=== PATIENT | female | born 1990 ===

== ENCOUNTER 2018-06-02 21:33 | Inpatient (IN) | payer OTHER ==
[2018-06-02] MEDS ORDERED: Sodium Chloride 0.9% 1,000 ML IV STA (22:19)
--- NOTE | 2018-06-02 22:24 | ED PDOC ---
HPI: Abdomen Time Seen by Provider: 06/02/18 22:03 Chief Complaint (Nursing): Chest Pain Chief Complaint (Provider): Abdominal Pain History Per: Patient History/Exam Limitations: no limitations Onset/Duration Of Symptoms: Days (x2) Current Symptoms Are (Timing): Still Present Associated Symptoms: Nausea, Chest Pain Additional Complaint(s): 27 y/o female presents to the ED complaining of abdominal pain for 2 days. Pain is associated with nausea, but no vomiting. Otherwise patient denies any diarrhea, vaginal bleeding, fever, chills, dysuria, urinary frequency, or incontinence. Also complains of left-sided chest pain, described as intermitt ent. No associated cough, palpitations, dizziness, or SOB. PMD: None Past Medical History Reviewed: Historical Data, Nursing Documentation, Vital Signs Vital Signs: Last Vital Signs Temp 98.4 F 06/02/18 21:59 Pulse 69 06/02/18 21:59 Resp 18 06/02/18 21:59 BP 105/62 06/02/18 21:59 Pulse Ox 99 06/02/18 21:59 - Medical History PMH: HTN - Family History Family History: States: No Known Family Hx - Home Medications Home Medications: Ambulatory Orders Medication Instructions Recorded RX: No Known Home Med 06/03/18 - Allergies Allergies/Adverse Reactions: Allergies Allergy/AdvReac Type Severity Reaction Status Date / Time No Known Allergies Allergy Verified 06/02/18 22:01 Review of Systems ROS Statement: Except As Marked, All Systems Reviewed And Found Negative Constitutional: Negative for: Fever, Chills Cardiovascular: Positive for: Chest Pain Respiratory: Negative for: Cough, Shortness of Breath Gastrointestinal: Positive for: Nausea, Abdominal Pain. Negative for: Vomiting, Diarrhea Genitourinary Female: Negative for: Dysuria, Frequency, Incontinence, Hematuria, Vaginal Bleeding Neurological: Negative for: Weakness, Dizziness Physical Exam - Reviewed Nursing Documentation Reviewed: Yes Vital Signs Reviewed: Yes - Physical Exam Appears: Positive for: Non-toxic, No Acute Distress Head Exam: Positive for: ATRAUMATIC, NORMOCEPHALIC Skin: Positive for: Normal Color, Warm, Dry Eye Exam: Positive for: EOMI, Normal appearance, PERRL Neck: Positive for: Normal, Painless ROM Cardiovascular/Chest: Positive for: Regular Rate, Rhythm, Chest Non Tender. Negative for: Murmur Respiratory: Positive for: Normal Breath Sounds. Negative for: Accessory Muscle Use, Respiratory Distress Gastrointestinal/Abdominal: Positive for: Soft, Tenderness (to right lower quadrant). Negative for: Guarding, Rebound Back: Negative for: L CVA Tenderness, R CVA Tenderness Extremity: Positive for: Normal ROM. Negative for: Calf Tenderness, Swelling Neurologic/Psych: Positive for: Alert, Oriented (x3). Negative for: Motor/Sensory Deficits - Laboratory Results Result Diagrams: 06/03/18 05:45 06/03/18 05:45 - ECG O2 Sat by Pulse Oximetry: 99 (RA) Pulse Ox Interpretation: Normal Medical Decision Making Medical Decision Making: Time: 22:19 Initial Impression: RLQ pain, nausea, chest pain Initial Plan: * CMP * Lipase * CBC * Urine dipstick * Urine preg * Chest x-ray * CT abd/pelvis * IV fluids * Zofran 4 mg IVP Scribe Attestation: Documented by Hiral Fisher, acting as a scribe for Dr. Frantz Wells MD. Provider Scribe Attestation: All medical record entries made by the Scribe were at my direction and personally dictated by me. I have reviewed the chart and agree that the record accurately reflects my personal performance of the history, physical exam, medical decision making, and the department course for this patient. I have also personally directed, reviewed, and agree with the discharge instructions and disposition. Disposition - Clinical Impression Clinical Impression: Abdominal pain - Patient ED Disposition Is Patient to be Admitted: Transfer of Care - Disposition Disposition: Transfer of Care Disposition Time: 00:00 Condition: FAIR Patient Signed Over To: Eric De Los Santos
[2018-06-02 22:42] LABS: BASO % 0.3 % (0.0-2.0); EOS # 0.1 K/uL (0.0-0.7); EOS % 0.4 % (0.0-4.0); HEMOGLOBIN 13.2 g/dL (12.0-16.0); LYMPH # 1.5 K/uL (1.0-4.3); LYMPH % 10.1 % (20.0-40.0); MEAN CELL VOLUME 94.5 fl (81.0-99.0); MEAN CORPUSCULAR HEMOGLOBIN 31.7 pg (27.0-31.0); MEAN CORPUSCULAR HGB CONC 33.6 g/dL (33.0-37.0); MEAN PLATELET VOLUME 7.7 fl (7.2-11.7); MONO # 0.8 K/uL (0.0-0.8); MONO % 5.4 % (0.0-10.0); NEUT # 12.6 K/uL (1.8-7.0); NEUT % 83.8 % (50.0-75.0); RBC 4.17 Mil/uL (3.80-5.20); RED CELL DISTRIBUTION WIDTH 13.9 % (11.5-14.5); WHITE BLOOD COUNT 15.1 K/uL (4.8-10.8)
[2018-06-02 22:53] LABS: ALB/GLOB RATIO 1.2 (1.0-2.1); ALBUMIN 4.8 g/dL (3.5-5.0); ALT/SGPT 56 U/L (9-52); AST/SGOT 66 U/L (14-36); BLOOD UREA NITROGEN 15 mg/dl (7-17); CALCIUM 9.1 mg/dL (8.4-10.2); GFR NON-AFRICAN AMERICAN > 60; LIPASE 113 U/L (23-300)
[2018-06-02] MEDS ORDERED: Sodium Chloride 0.9% 50 ML IV ONE (22:58)
[2018-06-02] MEDS ORDERED: Iohexol 300 100 ML IJ ONE (22:58)
[2018-06-03] MEDS ORDERED: Piperacillin/Tazobact 3.375 GM in Sodium Chloride 0.9% 100 ML IVPB STA (01:33)
[2018-06-03] MEDS ORDERED: Sodium Chloride 0.9% 1,000 ML IV STA (01:34)
[2018-06-03] MEDS ORDERED: Piperacillin/Tazobact 3.375 gm Inj IVPB ONE (01:59)
[2018-06-03 02:20] LABS: VENOUS BLOOD GAS BASE EXCESS -1.2 mmol/L (0.0-2.0); VENOUS BLOOD GAS PCO2 39 mmHg (40-60); VENOUS BLOOD GAS PO2 42 mm/Hg (30-55); VENOUS BLOOD PH 7.39 (7.32-7.43)
[2018-06-03] MEDS ORDERED: Morphine 4 MG/ML VIAL IVP PRN (03:28)
--- NOTE | 2018-06-03 04:28 | CP.PCM.HP ---
<Gavin Parnell - Last Filed: 06/03/18 07:14> History of Present Illness - History of Present Illness History of Present Illness: General Surgery H&P CC: abdominal pain HPI: 27F presented to the ED with constant RLQ pain that began yesterday evening and got worse over time. She has never felt this pain before. Pain is associated with nausea, but no emesis. Last BM was yesteday and was normal. Denies fever, chills, SOB, chest pain, diarrhea, vaginal bleeding, symptoms. PMH: HTN (does not take meds) PSH: Denies FH: noncontributory SH: No tobacco, EtOH or Drug use. All: NKDA Meds: Denies PMD: None Present on Admission - Present on Admission Any Indicators Present on Admission: No Review of Systems - Review of Systems All systems: reviewed and no additional remarkable complaints except (as per HPI) Past Patient History - Past Social History Smoking Status: Never Smoked - CARDIAC Hx Hypertension: Yes - PSYCHIATRIC Hx Substance Use: No - SURGICAL HISTORY Hx Surgeries: No - ANESTHESIA Hx Anesthesia: No Meds Allergies/Adverse Reactions: Allergies Allergy/AdvReac Type Severity Reaction Status Date / Time No Known Allergies Allergy Verified 06/02/18 22:01 Physical Exam - Constitutional Appears: Non-toxic, No Acute Distress - Head Exam Head Exam: ATRAUMATIC, NORMOCEPHALIC - Eye Exam Eye Exam: EOMI. absent: Scleral icterus - ENT Exam ENT Exam: Mucous Membranes Dry Additional comments: trachea midline - Neck Exam Neck exam: Positive for: Full Rom. Negative for: Tenderness - Respiratory Exam Respiratory Exam: NORMAL BREATHING PATTERN. absent: Respiratory Distress - Cardiovascular Exam Cardiovascular Exam: RRR, +S1, +S2 - GI/Abdominal Exam GI & Abdominal Exam: Soft, Tenderness (in RLQ >suprapubic). absent: Distended, Firm, Guarding, Hernia, Rebound, Rigid - Rectal Exam Rectal Exam: Deferred - Extremities Exam Extremities exam: Positive for: pedal pulses present. Negative for: calf tenderness, pedal edema - Back Exam Back exam: absent: CVA tenderness (L), CVA tenderness (R) - Neurological Exam Neurological exam: Alert, Oriented x3 - Skin Skin Exam: Dry, Warm Results - Vital Signs Recent Vital Signs: Last Vital Signs Temp 97.7 F 06/03/18 04:08 Pulse 73 06/03/18 04:08 Resp 18 06/03/18 04:08 BP 114/61 06/03/18 04:08 Pulse Ox 99 06/03/18 04:08 - Labs Result Diagrams: 06/03/18 05:45 06/03/18 05:45 Labs: Laboratory Results - last 24 hr 06/02/18 06/02/18 06/03/18 22:35 22:35 02:11 WBC 15.1 H RBC 4.17 Hgb 13.2 Hct 39.4 MCV 94.5 MCH 31.7 H MCHC 33.6 RDW 13.9 Plt Count 248 MPV 7.7 Neut % (Auto) 83.8 H Lymph % (Auto) 10.1 L [place] % (Auto) 5.4 Eos % (Auto) 0.4 Baso % (Auto) 0.3 Neut # (Auto) 12.6 H Lymph # (Auto) 1.5 [place] # (Auto) 0.8 Eos # (Auto) 0.1 Baso # (Auto) 0.0 pO2 42 VBG pH 7.39 VBG pCO2 39 L VBG HCO3 23.4 VBG Total CO2 24.8 VBG O2 Sat (Calc) 81.7 H VBG Base Excess -1.2 L VBG Potassium 3.4 L Glucose 101 Lactate 1.3 FiO2 21.0 Sodium 138 136.0 Potassium 5.7 H Chloride 108 H 105.0 Carbon Dioxide 19 L Anion Gap 17 BUN 15 Creatinine 0.6 L Est GFR ( Amer) > 60 Est GFR (Non-Af Amer) > 60 Random Glucose 119 H Calcium 9.1 Total Bilirubin 1.4 H AST 66 H ALT 56 H Alkaline Phosphatase 79 Total Protein 8.9 H Albumin 4.8 Globulin 4.1 H Albumin/Globulin Ratio 1.2 Lipase 113 Venous Blood Potassium 3.4 L - Imaging and Cardiology CT scan - abdomen Status: Image reviewed by me, Report reviewed by me Assessment & Plan - Assessment and Plan (Free Text) Assessment: 27F with acute appendicitis Plan: NPO IVF AM labs Zofran Zosyn Analgesia OR this afternoon D/W Dr. Sam Parnell PGY4 <Shlomo Vargas - Last Filed: 06/03/18 11:52> Results - Vital Signs Recent Vital Signs: Last Vital Signs Temp 98.4 F 06/03/18 08:09 Pulse 73 06/03/18 08:09 Resp 18 06/03/18 08:09 BP 96/63 L 06/03/18 08:09 Pulse Ox 99 06/03/18 10:08 - Labs Result Diagrams: 06/03/18 05:45 06/03/18 05:45 Labs: Laboratory Results - last 24 hr 06/02/18 06/02/18 06/03/18 22:35 22:35 02:11 WBC 15.1 H RBC 4.17 Hgb 13.2 Hct 39.4 MCV 94.5 MCH 31.7 H MCHC 33.6 RDW 13.9 Plt Count 248 MPV 7.7 Neut % (Auto) 83.8 H Lymph % (Auto) 10.1 L [place] % (Auto) 5.4 Eos % (Auto) 0.4 Baso % (Auto) 0.3 Neut # (Auto) 12.6 H Lymph # (Auto) 1.5 [place] # (Auto) 0.8 Eos # (Auto) 0.1 Baso # (Auto) 0.0 PT INR APTT pO2 42 VBG pH 7.39 VBG pCO2 39 L VBG HCO3 23.4 VBG Total CO2 24.8 VBG O2 Sat (Calc) 81.7 H VBG Base Excess -1.2 L VBG Potassium 3.4 L Glucose 101 Lactate 1.3 FiO2 21.0 Sodium 138 136.0 Potassium 5.7 H Chloride 108 H 105.0 Carbon Dioxide 19 L Anion Gap 17 BUN 15 Creatinine 0.6 L Est GFR ( Amer) > 60 Est GFR (Non-Af Amer) > 60 Random Glucose 119 H Calcium 9.1 Total Bilirubin 1.4 H AST 66 H ALT 56 H Alkaline Phosphatase 79 Total Protein 8.9 H Albumin 4.8 Globulin 4.1 H Albumin/Globulin Ratio 1.2 Lipase 113 Venous Blood Potassium 3.4 L 06/03/18 06/03/18 06/03/18 05:45 05:45 05:45 WBC 12.4 H RBC 3.90 Hgb 12.1 Hct 36.7 MCV 94.2 MCH 31.0 MCHC 32.9 L RDW 13.4 Plt Count 227 MPV 7.4 Neut % (Auto) 76.7 H Lymph % (Auto) 15.3 L [place] % (Auto) 7.7 Eos % (Auto) 0.1 Baso % (Auto) 0.2 Neut # (Auto) 9.5 H Lymph # (Auto) 1.9 [place] # (Auto) 1.0 H Eos # (Auto) 0.0 Baso # (Auto) 0.0 PT 12.8 INR 1.2 APTT 30.0 pO2 VBG pH VBG pCO2 VBG HCO3 VBG Total CO2 VBG O2 Sat (Calc) VBG Base Excess VBG Potassium Glucose Lactate FiO2 Sodium 140 Potassium 3.5 L Chloride 107 Carbon Dioxide 24 Anion Gap 13 BUN 10 Creatinine 0.6 L Est GFR ( Amer) > 60 Est GFR (Non-Af Amer) > 60 Random Glucose 112 H Calcium 8.9 Total Bilirubin 1.0 AST 41 H D ALT 59 H Alkaline Phosphatase 64 Total Protein 7.0 Albumin 3.8 Globulin 3.2 Albumin/Globulin Ratio 1.2 Lipase Venous Blood Potassium Assessment & Plan - Assessment and Plan (Free Text) Plan: I personally saw and examined the patient with the resident staff, reviewed imaging and report and agree with above. [address] confirmed acute appendicitis. Risks and benefits of laparoscopic appendectomy discussed, including but not limited to bleeding, wound infection, abscess, bowel injury, and need for open surgery. She understands these risks and informed consent signed.
[2018-06-03] MEDS ORDERED: Dextrose 5%/0.45% NS 1,000 ML IV SCH (06:00)
[2018-06-03 06:13] LABS: BASO % 0.2 % (0.0-2.0); EOS % 0.1 % (0.0-4.0); HEMOGLOBIN 12.1 g/dL (12.0-16.0); LYMPH # 1.9 K/uL (1.0-4.3); LYMPH % 15.3 % (20.0-40.0); MEAN CELL VOLUME 94.2 fl (81.0-99.0); MEAN CORPUSCULAR HGB CONC 32.9 g/dL (33.0-37.0); MEAN PLATELET VOLUME 7.4 fl (7.2-11.7); MONO % 7.7 % (0.0-10.0); NEUT # 9.5 K/uL (1.8-7.0); NEUT % 76.7 % (50.0-75.0); RBC 3.9 Mil/uL (3.80-5.20); RED CELL DISTRIBUTION WIDTH 13.4 % (11.5-14.5); WHITE BLOOD COUNT 12.4 K/uL (4.8-10.8)
[2018-06-03 06:21] LABS: INR 1.2; PROTHROMBIN TIME 12.8 Seconds (9.8-13.1)
[2018-06-03 06:22] LABS: ALB/GLOB RATIO 1.2 (1.0-2.1); ALBUMIN 3.8 g/dL (3.5-5.0); ALT/SGPT 59 U/L (9-52); AST/SGOT 41 U/L (14-36); BLOOD UREA NITROGEN 10 mg/dl (7-17); CALCIUM 8.9 mg/dL (8.4-10.2); GFR NON-AFRICAN AMERICAN > 60
[2018-06-03] MEDS: Potassium Chloride 20 mEq 100 ML IVPB SCH ×3 (08:56→13:05)
[2018-06-03] MEDS ORDERED: Rocuronium 10 mg/ml (5 ml) ONE (10:34)
[2018-06-03] MEDS ORDERED: Succinylcholine 200 mg/10 ml Inj IV ONE (10:34)
[2018-06-03] MEDS ORDERED: Propofol 10 mg/ml Inj (20 ML) ONE (10:34)
[2018-06-03] MEDS ORDERED: Midazolam 2 MG/2 ML VIAL ONE (10:34)
[2018-06-03] MEDS ORDERED: Lidocaine 4% (Laryng-O-Jet) Kit MM ONE (10:35)
[2018-06-03] MEDS: Piperacillin/Tazobact 3.375 GM in Sodium Chloride 0.9% 100 ML IVPB SCH ×3 (11:26→16:25)
--- NOTE | 2018-06-03 11:40 | CT ---
Date of service: 06/02/2018 PROCEDURE: CT Abdomen and Pelvis with contrast HISTORY: Chest and abdominal pain. COMPARISON: None. TECHNIQUE: Intravenous contrast dose: 90 cc Omnipaque 300. Radiation dose: Total exam DLP = 250.61 mGy-cm. This CT exam was performed using one or more of the following dose reduction techniques: Automated exposure control, adjustment of the mA and/or kV according to patient size, and/or use of iterative reconstruction technique. FINDINGS: LOWER THORAX: Unremarkable. LIVER: Unremarkable. No gross lesion or ductal dilatation. GALLBLADDER AND BILE DUCTS: Unremarkable. PANCREAS: Unremarkable. No gross lesion or ductal dilatation. SPLEEN: Unremarkable. ADRENALS: Unremarkable. No mass. KIDNEYS AND URETERS: Unremarkable. No hydronephrosis. No solid mass. VASCULATURE: Unremarkable. No aortic aneurysm. BOWEL: Unremarkable. No obstruction. No gross mural thickening. APPENDIX: The wall displays contrast-enhancing characteristics consistent with acute appendicitis. PERITONEUM: Unremarkable. No free fluid. No free air. LYMPH NODES: Unremarkable. No enlarged lymph nodes. BLADDER: Unremarkable. REPRODUCTIVE: Contrast-enhancing characteristics right ovary with slight deformity likely ruptured right ovarian cyst. Smaller cyst/follicle identified left adnexa. Trace free fluid identified in the pelvis/cul de sac. BONES: No acute fracture. OTHER FINDINGS: None. IMPRESSION: Early, acute appendicitis. Findings suggest rupture of right adnexal cyst. Concordant results (preliminary interpretation) provided by [employer]. Procedure Completed: 23:11 Preliminary Report: Dictated and Authenticated: 00:30. Final Interpretation: 11:39. June 03, 2018
--- NOTE | 2018-06-03 11:43 | RAD ---
Date of service: 06/02/2018 HISTORY: Chest pain COMPARISON: No prior. TECHNIQUE: Chest PA and lateral FINDINGS: LUNGS: No active pulmonary disease. PLEURA: No significant pleural effusion identified. No pneumothorax apparent. CARDIOVASCULAR: Normal. OSSEOUS STRUCTURES: No significant abnormalities. VISUALIZED UPPER ABDOMEN: Normal. OTHER FINDINGS: None. IMPRESSION: No acute cardiopulmonary disease appreciated.
[2018-06-03] MEDS ORDERED: Dexamethasone 4 mg/1 ml ONE (11:59)
[2018-06-03] MEDS ORDERED: Bupivacaine 0.25% Inj(30mL) IJ ONE ×2 (12:07)
[2018-06-03] MEDS ORDERED: ePHEDrine 50 mg/ml Inj ONE (12:13)
[2018-06-03] MEDS ORDERED: Neostigmine 1:1000 (1 mg/ml) Inj ONE (12:23)
[2018-06-03] MEDS ORDERED: Phenylephrine 10 mg/ml Inj ONE (12:38)
[2018-06-03] MEDS ORDERED: Lactated Ringer's 500 ML IV ONE (13:00)
[2018-06-03] MEDS ORDERED: Dexamethasone 4 mg/1 ml IVP PRN (13:03)
[2018-06-03] MEDS ORDERED: HYDROmorphone 0.5 mg/0.5 ml ISec IVP PRN (13:03)
[2018-06-03] MEDS ORDERED: Oxycodone/Acetaminophen 5/325 mg Tab PO PRN (13:08)
--- NOTE | 2018-06-03 13:11 | PCM.SURG1 ---
Surgeon's Initial Post Op Note - Surgeon's Notes Surgeon: Dr. Vargas Etch Operator [employer] Wafers: Dr. Leiva PGY-3 Type of Anesthesia: General Endo Anesthesia Administered By: Dr. Reid Pre-Operative Diagnosis: Acute Appendicitis Operative Findings: See operative report Post-Operative Diagnosis: Same Operation Performed: Laparaoscopic Appendectomy Specimen/Specimens Removed: appendix Estimated Blood Loss: EBL {In ML}: 10 Blood Products Given: N/A Drains Used: No Drains Post-Op Condition: Good Date of Surgery/Procedure: 06/03/18 Time of Surgery/Procedure: 13:11
--- NOTE | 2018-06-03 13:12 | PCM.OP ---
Operative Report - Operative Report Date of Surgery/Procedure: 06/03/18 Time of Surgery/Procedure: 12:00 Surgeon: Shlomo Vargas MD [employer] Founder: Sujatha Leiva DO (PGY4 resident) Anesthesia/Sedation: Anesthesia: General endotracheal; 1% lidocaine + 0.25% Marcaine mix local anesthesia Pre-Operative Diagnosis: Acute appendicitis Post-Operative Diagnosis: Acute appendicitis Indication for Surgery: This is a 27 year old female who presented to the emergency department earlier with 24 hours of abdominal pain and CT scan findings consistent with acute appendicitis. Risks and benefits of laparoscopic possible open, appendectomy discussed as documented in clinical chart. All questions answered and informed consent signed prior to operation. Operative Findings: Dilated, long inflamed appendix without evidence of perforation. Scant fluid in pelvis; Appendix removed intact; Mesoappendiceal and cecal staple lines in tact without leak or bleeding at end of case. Procedure/Operation Description: PROCEDURE PERFORMED: Laparoscopic Appendectomy. Omental buttress of cecal staple line. DETAILS OF PROCEDURE: The patient was given a preoperative dose of Zosyn 20 minutes prior to incision. SCD boots were placed for DVT prophylaxis. Secure straps placed above the knees. Left arm tucked at patients side in neutral position. Right arm placed out on padded armboard. An orogastric tube placed in order to empty the stomach after the induction of general anesthesia. Upper body warmer placed. Rosario cat her was not inserted as patient voided immediately prior to being brought back to OR. No hair removal needed. The abdomen was prepped and draped in sterile fashion. Timeout was perforemd prior to incison. All skin incisions were made using an 11 blade scalpel after being pre-anesthetized with local anesthesia. In the supraumbilical midline, a circumlinear incision was made and the umbilical raphe was identified and the fascia was divided between clamps at its base entering the abdomen in an open fashion. A 11-mm trocar was inserted in the abdomen and the abdomen was insufflated to 15 mmHg pressure with CO2. A 30- degree viewing scope was then inserted and the abdomen was generally inspected and there was not found to be any additional signs of pathology. We then placed 2 additional 5mm working ports under direct vision, one in left lower quadrant, lateral to the rectus and inferior epigastric vessels; and another in the suprapubic region. The abdomen was generally insepected and no other pathology found. Scant fluid in pelvis. Dilated, inflamed appendix without perforation noted. We began by sweeping the small intestine out of the pelvis and easily visualized the cecum tracing the taenia down to the appendix and terminal ileum with identifcation of the fat/fold of treves. A mesenteric window was created bluntly in between base of appendix at cecum and mesoappendix, and 45m linear stapler vascular white load was used to ligate and divide the appendiceal pedicle. Lateral attachments to the abdominal wall were taken down sharply to mobilize the base of the appendix. Small bleeding adjacent to the staple line was controlled with 2 5mm clips. The staple line was inspected and noted to be intact without bleeding. Next a 45 mm blue load linear staple was used to divide the appendix at its base, being sure not to incorporate cecum. The specimen was placed in an Endocatch bag and removed from the 12mm trocar. The trocar reinserted and we next turned our attention to inspecting the staple line. The staple lines were carefully inspected and appeared hemostatic. Omentum was then draped over the suture line and instruments and ports removed under direct vision. The abdomen was then desufflated. 0-vycrl suture in a figure of eight fashion x1 was used to close the umilical fasia. The skin was closed with 4-0 monocryl and dermabond. All sponge, needle and instrument counts were correct. The patient was extubated in the operating room, and taken to the recovery room in stable condition. I was present for the entirety of the operation. Estimated Blood Loss: 15mL Complications: none Specimen: appendix Discharge & Condition: above
[2018-06-03] MEDS ORDERED: Lactated Ringer's 1,000 ML IV SCH (13:15)
[2018-06-03 16:03] VITALS: O2SAT 100
[2018-06-03 16:53] VITALS: BP 123/73; PULSE 77; RESP 20; TEMP 97.6
== END 2018-06-03 19:20 | disposition home or self-care (01) | DRG 883 ==
LOC: H.ER 21:33 → H.ERHOLD 06-03 02:44 → H.MEDSURG1 06-03 04:14
PROVIDERS: ADMIT Surgery; ATTEND Surgery
PROC: 0DTJ4ZZ Resection of Appendix, Percutaneous Endoscopic Approach (ICD-10-PCS; principal; 2018-06-03 10:30)
DX: K35.80 Unspecified acute appendicitis (principal); I10 Essential (primary) hypertension